=== PATIENT | female | born 1995 | race African-American/Black ===

== ENCOUNTER 2022-06-30 09:52 | Emergency (ER) | payer MEDICAID, SELFPAY ==
[2022-06-30 09:57] VITALS: BP 122/80; PULSE 110; RESP 19; TEMP 36.6; O2SAT 100; BMI 20.9
--- NOTE | 2022-06-30 10:27 | ED.GENADULT ---
HPI - General Adult General Chief complaint: General Medical Stated complaint: Seeking detox Time Seen by Provider: 06/30/22 10:27 Source: patient Mode of arrival: ambulatory Limitations: no limitations History of Present Illness HPI narrative: Patient is a 26 year old assigned female at with a history of crack cocaine abuse presenting to the emergency department today requesting detox. Patient states that she is using crack daily and would like help getting into treatment. Patient denies any dizziness, lightheadedness, abdominal pain, nausea, vomiting, fever, chills, blurry vision, double vision, loss of vision, chest pain, difficulty breathing, shortness of breath, back pain, night sweats, pain with urination, increased urinary frequency, increased urinary urgency, blood in her urine or stool, syncope or a near syncopal episode, recent trauma or falls, bowel incontinence, bladder incontinence, bowel retention, bladder retention, or any other complaints at this time. Severity: mild Relieving factors: none Exacerbating factors: none Associated symptoms: denies other symptoms Treatments prior to arrival: none Related Data Allergies Allergy/AdvReac Type Severity Reaction Status Date / Time No Known Allergies Allergy Verified 06/30/22 10:29 Review of Systems Constitutional: Constitutional: Reports no additional constitutional complaints, Denies chills, Denies fever(s) and Denies night sweats Eyes: Eyes: Reports no additional eye complaints, Denies blurry vision, Denies change in vision, Denies diplopia, Denies eye discharge, Denies loss of vision and Denies eye pain ENT: Denies dizziness Cardiovascular: Cardiovascular: Reports no additional cardiovascular complaints, Denies chest pain, Denies lightheadedness, Denies Loss of Consciousness and Denies dyspnea Respiratory: Respiratory: Reports no additional respiratory complaints and Denies dyspnea Gastrointestinal: Gastrointestinal: Reports no additional gastrointestinal complaints, Denies abdominal pain, Denies melena, Denies hematochezia, Denies change in bowel habits and Denies change in stool character Genitourinary: Genitourinary: Denies hematuria, Denies urinary frequency, Denies dysuria, Denies urinary incontinence, Denies urinary hesitancy and Denies urinary urgency Musculoskeletal: Musculoskeletal: Reports no additional musculoskeletal complaints, Denies numbness and Denies tingling Neurologic: Denies dizziness, Denies loss of vision, Denies numbness and Denies tingling Psychiatric: Psychiatric: Reports no additional psychiatric complaints Endocrine: Endocrine: Reports no additional endocrine complaints Hematologic/Lymphatic: Hematologic/Lymphatic: Reports no additional hematologic/lymphatic complaints Allergic/Immunologic: Allergic/Immunologic: Reports no additional allergic/immunologic complaints [facility] Past Medical History Attestation statement: The following information was validated with the patient. Source: old records reviewed and nursing notes reviewed Social History Social History Advance Directives: No Advance Directives Information Provided: No Physical Exam ED Vital Signs: Vital Signs - 24 hr 06/30/22 09:57 Temperature 98 F Pulse Rate 110 H Respiratory Rate 19 Blood Pressure 122/80 Pulse Oximetry 100 Oxygen Delivery Method Room Air BMI result Body Mass Index 20.9 Const General: cooperative, no acute distress, alert and awake Nutritional Appearance: well nourished Orientation/consciousness: patient oriented x3 Limitations: no limitations HENMT Head: Yes normal to inspection and Yes atraumatic Ears: hearing grossly normal bilaterally and external ears normal General nose exam: Normal external nose present, no nasal discharge noted and no epistaxis Face and sinus: Yes normal facial exam, No abrasion and No laceration Mouth: Normal oral and palatal mucosa present, no drooling and no muffled voice Eyes General: appearance normal, both eyes and all related structures Periorbital: periorbital findings normal Eyelids: Yes eyelids normal Conjunctivae: conjunctivae normal Pupils: Equal, round and reactive pupils present EOM: EOMs intact bilaterally Neck Neck: Yes normal visual inspection, Yes full ROM and Yes no lymphadenopathy Chest Chest palpation & inspection: normal inspection of the chest Resp Effort & Inspection: normal respiratory effort and able to speak in complete sentences Auscultation: clear to auscultation bilaterally Cardio Rate: regular rate Rhythm: regular rhythm GI Inspection: Yes normal to inspection Palpation (GI): Soft to palpation, not firm, nontender, no guarding and not rigid Neuro General: patient oriented x3 and moves all extremities Cranial nerves: Yes Equal, round and reactive pupils present Cognition (Neuro): normal cognition Motor exam (neuro): 5/5 motor strength present throughout Sensory Exam: Normal double simultaneous stimulation for sensation Coordination: [id number] test normal Extrem General: Yes normal to inspection, Yes full ROM and Yes capillary refill normal Psych Appearance: grossly normal Mental Status: mental status grossly normal Affect: normal affect Attitude: cooperative Thought process: Normal thought process present Thought content: Normal thought content present Insight: Good insight present (Psych) Medical Decision Making Medical Decision Making MDM Narrative: Patient is a 26 year old assigned female at with a history of crack cocaine abuse presenting to the emergency department today requesting detox. Patient's physical exam was unremarkable. I explained my physical exam findings to the patient. I answered all questions asked by the patient. CARE team met with the patient and secured her a detox bed in [place]. I stressed the importance of the patient taking her medication as prescribed. I stressed the importance of the patient following up with her primary care provider. I stressed the importance of the patient returning to the emergency department immediately if she were to develop any dizziness, shortness of breath, difficulty breathing, chest pain, blurry vision, loss of vision, nausea, vomiting, abdominal pain, fever, chills, back pain, or any other complaints. Patient verbalized agreement and understanding with this treatment plan and discharge. Differential Diagnosis Differential Diagnoses: The differential diagnosis associated with the presentation includes crack cocaine abuse, substance abuse Lab Data [facility] Lab Attestation statement: I reviewed the patient's lab results. Labs: Lab Results 06/30/22 Range/Units 12:22 Urine Opiates Screen Not Detected (Not Detect) Urine Fentanyl Screen Not Detected (Not Detect) Ur Barbiturates Screen Not Detected (Not Detect) Ur Phencyclidine Scrn Not Detected (Not Detect) Ur Amphetamines Screen Not Detected (Not Detect) U Benzodiazepines Scrn Not Detected (Not Detect) Urine Cocaine Screen POSITIVE H (Not Detect) U Marijuana (THC) Screen POSITIVE H (Not Detect) Discharge Plan Discharge Clinical Impression: Crack cocaine use Patient Disposition: Home, Self-Care Instructions: Cocaine Abuse (ED) Additional Instructions: Follow up with your primary care provider. Return to the emergency department immediately if your symptoms worsen or if you develop any dizziness, shortness of breath, difficulty breathing, chest pain, blurry vision, loss of vision, nausea, vomiting, abdominal pain, fever, chills, back pain, or any other complaints. Print Language: Welsh
--- NOTE | 2022-06-30 11:57 | MHC.RECOVRN ---
Met with pt in [facility] to discuss substance use and desire for treatment. Pt reports using crack cocaine, INH, x 4 days and is requesting ATS placement. Pt unable to quantify how much, states I don't buy it. Denies other substances. Pt had been living in [place] with her boyfriend but was kicked out on [address] and mother brought her back to [place]. Pt has been to [facility] and [facility] in the past, is willing to go anywhere except [facility]. Denies questions or concerns, t/w will send referrals.
[2022-06-30 12:39] LABS: Amphetamine Screen Urine Not Detected (Not Detect); Barbiturates, Urine Not Detected (Not Detect); Benzodiazepines Screen Urine Not Detected (Not Detect); Cannabinoid Screen Urine POSITIVE (Not Detect); Cocaine Screen Urine POSITIVE (Not Detect); Fentanyl, urine Not Detected (Not Detect); Opiate Screen Urine Not Detected (Not Detect); Phencyclidine Screen Urine Not Detected (Not Detect)
--- NOTE | 2022-06-30 13:19 | PC.NURSE ---
pt had intake with marianna chew via phone- CARE team aware, pt currently in room eating, DAT [facility]
--- NOTE | 2022-06-30 14:31 | MHC.RECOVRN ---
Pt dc to [facility] at [address] [place], [place]. Will be transported via [employer].
== END 2022-06-30 15:02 | disposition home or self-care (01) ==
PROVIDERS: Physician Assistant Medical; Emergency Provider Student in an Organized Health Care Education/Training Program
DX: F14.10 Cocaine abuse, uncomplicated (principal)
CPT/HCPCS: 80307; 99283

== ENCOUNTER 2022-10-18 18:19 | Emergency (ER) | payer MEDICAID, SELFPAY ==
--- NOTE | ~2022-10-18 | XR_ITS ---
EXAMINATION: XR FINGER, RIGHT CLINICAL INFORMATION: Thumb pain, redness COMPARISON: None available. TECHNIQUE: Three views of the right thumb. FINDINGS: The bones and soft tissues are normal. No fracture. Alignment is anatomic. Joint spaces are maintained. XR/XR finger RT min 2V IMPRESSION: Normal finger radiographs.
[2022-10-18 18:33] VITALS: BP 152/96; PULSE 103; RESP 20; TEMP 37.5; O2SAT 98; BMI 20.5
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
[2022-10-18 19:10] LABS: MANUAL DIFF FLAG NO
[2022-10-18 19:11] LABS: Basophils Percent Auto 0.4 % (0-2); Eosinophils Percent Auto 0.5 % (0-4); Hematocrit 36.4 % (37.0-47.0); Hemoglobin 11.8 g/dl (12.0-16.0); Imm Gran Abs Auto 0.01 X10*3/uL (0.00-0.03); Imm Gran Pct Auto 0.1 % (0.0-0.4); Lymphocytes Absolute Auto 2.1 X10*3/uL (1.2-4.9); Lymphocytes Percent Auto 28.2 % (20-40); Mean Corpuscular HGB Conc 32.4 g/dl (31.0-35.0); Mean Corpuscular Hemoglobin 30.7 pg (27.0-33.0); Mean Corpuscular Volume 94.8 fL (80.0-98.0); Mean Platelet Volume 9.8 fL (9.4-12.3); Monocytes Absolute Auto 0.8 X10*3/uL (0.1-1.2); Monocytes Percent Auto 10.1 % (2-11); Neutrophils Absolute Auto 4.6 x10*3/uL (2.0-8.3); Neutrophils Percent Auto 60.7 % (45-73); Platelet Count 352 X10*3/uL (160-400); Red Blood Count 3.84 X10*6/uL (4.20-5.50); Red Cell Distribution Width 12.5 % (11.0-16.0); White Blood Count 7.5 X10*3/uL (4.8-10.8)
[2022-10-18 19:12] LABS: Appearance Urine Clear; Color Urine Yellow; Glucose Urine UA Negative (Negative); Leukocyte Esterase Urine Trace (Negative); Nitrite Urine Negative (Negative); UMIC TRIGGER UACC YES; UPreg QC Valid YES; Urine Blood Negative (Negative); Urine Ketones Negative (Negative); Urine Pregnancy NEGATIVE (NEGATIVE); Urine Protein Negative (Neg-Trace)
[2022-10-18 19:15] LABS: Bacteria Urine None Seen (None Seen); Hyaline Casts Urine 0-2 /LPF (0-2); RBC Urine 0-2 /HPF (0-2); WBC Urine 0-5 /HPF (0-5)
[2022-10-18 19:20] LABS: Amphetamine Screen Urine Not Detected (Not Detect); Barbiturates, Urine Not Detected (Not Detect); Benzodiazepines Screen Urine POSITIVE (Not Detect); Cannabinoid Screen Urine Not Detected (Not Detect); Cocaine Screen Urine POSITIVE (Not Detect); Fentanyl, urine POSITIVE (Not Detect); Opiate Screen Urine Not Detected (Not Detect); Phencyclidine Screen Urine Not Detected (Not Detect)
[2022-10-18 19:33] LABS: Alanine Aminotransferase 33 U/L (0-31); Albumin Level 4.1 g/dL (3.5-5.0); Alkaline Phosphatase 62 U/L (39-117); Anion Gap 12 (12-20); Aspartate Amino Transferase 25 U/L (5-31); Bilirubin Direct 0.1 mg/dL (0.0-0.5); Bilirubin Total 0.3 mg/dL (0.0-1.0); Blood Urea Nitrogen 14 mg/dL (9-16); Calcium 9.1 mg/dL (8.4-10.2); Carbon Dioxide 23 mmol/L (22-29); Chloride 110 mmol/L (96-108); Creatinine Clr Calc Pharmacy 118.4; Estimated Glomerular Filt Rate > 60; Ethanol < 10 mg/dL; Glucose Random 89 mg/dL (60-115); Lipase 31 U/L (8-78); Magnesium 1.9 mg/dL (1.6-2.6); Potassium 3.7 mmol/L (3.3-5.1); Sodium 141 mmol/L (135-145)
[2022-10-18] MEDS: Amoxicillin/Potassium Clav 875 MG TABLET PO (20:12)
[2022-10-18 20:43] LABS: COVID-19 Test Negative (Negative); IDNOW Serial# 6674DD1D
--- NOTE | 2022-10-18 22:31 | PC.NURSE ---
Spoke with patients m other on the phone regarding update on patients care status, said she will call back again in the morning for further update
--- NOTE | 2022-10-18 22:43 | PC.NURSE ---
assumed care of pt per charge nurse pt seeking detox no apparent distress resting quietly
--- NOTE | 2022-10-19 01:46 | PC.NURSE ---
pt sleeping respirations even and unlabored no apparent distress
--- NOTE | 2022-10-19 03:12 | PC.NURSE ---
pt sleeping respirations even and unlabored no apparent distress
--- NOTE | 2022-10-19 05:04 | PC.NURSE ---
pt sleeping respirations even and unlabored no apparent distress
--- NOTE | 2022-10-19 07:26 | PC.NURSE ---
pt sleeping respirations even and unlabored no apparent distress
[2022-10-19 07:47] VITALS: BP 128/82; PULSE 68; RESP 20; TEMP 36.8; O2SAT 98
--- NOTE | 2022-10-19 08:35 | MHC.RECOVRN ---
Met with pt in ED [facility] to discuss ATS. Pt reports she is willing to go anywhere for treatment except [facility] because you have to wear johnnies and it's cold in there. Pt aware [facility] may be the only option. T/w will conduct bedsearch.
--- NOTE | 2022-10-19 09:13 | MHC.RECOVRN ---
Referral has been sent to the following facilities: [facility] (awaiting call back with bed availability) [facility] (no beds) [facility] (wait list) [facility] (awaiting call back with bed availability) [facility] (awaiting call back with bed availability) [facility] (awaiting call back with bed availability)
--- NOTE | 2022-10-19 10:22 | MHC.RECOVRN ---
Pt agreeable to [facility] referral. Referral has been sent.
--- NOTE | 2022-10-19 11:29 | PC.NURSE ---
Pt has been sleeping, woke up to eat breakfast. Respirations even and unlabored.
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
[2022-10-19] MEDS: Amoxicillin/Potassium Clav 875 MG TABLET PO (12:12)
[2022-10-19 12:18] VITALS: BP 132/89; PULSE 81; RESP 16; O2SAT 98
--- NOTE | 2022-10-19 13:15 | MHC.RECOVRN ---
Spoke with Debbi at [facility], pt accepted pending phone screen.
--- NOTE | 2022-10-19 13:30 | MHC.RECOVRN ---
Pt accepted to [facility] for 8PM admission.
--- NOTE | 2022-10-19 17:19 | PC.NURSE ---
Pt provided mutliple sandwiches, pudding, and crackers. Continues to sleep on and off on the stretcher. Aware of plan for bed at detox for 8pm
== END 2022-10-19 19:27 | disposition left against medical advice (07) ==
PROVIDERS: Physician Assistant; Physician Assistant Medical; Emergency Provider Internal Medicine
DX: F10.20 Alcohol dependence, uncomplicated (principal); Y90.0 Blood alcohol level of less than 20 mg/100 ml; F19.10 Other psychoactive substance abuse, uncomplicated; T23.211D Burn of second degree of right thumb (nail), subsequent encounter; X08.8XXD Exposure to other specified smoke, fire and flames, subsequent encounter; Z20.822 Contact with and (suspected) exposure to COVID-19
CPT/HCPCS: 36415; 73140; 80048; 80076; 80307; 81001; 81025; 82077; 83690; 83735; 85025; 87635; 99285

== ENCOUNTER 2022-11-01 09:46 | Emergency (ER) | payer MEDICAID, SELFPAY ==
[2022-11-01 09:50] VITALS: BP 165/111; PULSE 105; RESP 18; TEMP 36.6; O2SAT 98; BMI 19.2
--- NOTE | 2022-11-01 10:25 | ED_ITS ---
HPI - Alcohol General Chief Complaint: ETOH/Substance Use Stated Complaint: detox rehab Time Seen by Provider: 11/01/22 10:12 Source: patient and family Mode of arrival: ambulatory Limitations: no limitations History of Present Illness HPI narrative: Patient is a 27 year old female with a PMH of substance abuse, anxiey, depression, bipolar, and asthma here seeking detox treatment. She currently uses about 3-5g of crack a day, fentanyl, and also endorses heavy alcohol use. She stats she typically drinks about a pint of [place], about 11 nips, and UV blue.She last used about an hour ago. At that time she used a large amount of crack. She drank alcohol at 12am today. She states about an hour ago she was having pain with breathing and shallow breaths which have since resolved. She also endorses spinal back pain, chills, and sweats She denies chest pain, current difficulty breathing, headache, abdominal pain, difficulty with urination/bowel movements, and other muscle aches. She also denies SI. She also was concerned about a large blister on her toe. MD complaint: desires rehab and medical clearance for detox facility Last drink: Just prior to admission Chronic alcohol use: Yes Previous visits for alcohol intoxication: Yes Recent trauma: No Related Data Allergies Allergy/AdvReac Type Severity Reaction Status Date / Time No Known Allergies Allergy Verified 06/30/22 10:29 Review of Systems Review of Systems: Constitutional : No Fever, Chills, Sweats, No Fatigue Cardiovascular : No Chest Pain, No SOB, No current dyspnea, + although endorses shallow breathing earlier today Respiratory : No Cough, No Sputum, No Wheezing, No Smoke Exposure, No Dyspnea Gastrointestinal : No Diarrhea, No Constipation, No abdominal Pain, Genitourinary : No Dysuria, No Urinary Frequency, No Urinary Incontinence, No Urgency, No Urinary Flow Changes, No Hesitancy Musculoskeletal : Pain in the spine, right sided back painNo joint pain, No Myalgias, No Joint Swelling Skin : + Fluid-filled blister on her toe Neuro : No Headache Psych : No SI/HI/AH/VH, uses crack, Fentanyl, and heavy alcohol, has undergone detox before Endocrine : increased sweating Yes all other systems are reviewed and are negative PMFSH Past Medical History Attestation statement: The following information was validated with the patient. Source: old records reviewed, obtained from family and nursing notes reviewed Social History Social History Alcohol intake: current Alcohol intake frequency: 3 or more drinks per day Alcohol type: hard liquor Substance Use Type: Crack/Cocaine Advance Directives: No Advance Directives Information Provided: Yes Physical Exam ED Vital Signs: Vital Signs - 24 hr 11/01/22 09:50 Temperature 98 F Pulse Rate 105 H Respiratory Rate 18 Blood Pressure 165/111 H Pulse Oximetry 98 Oxygen Delivery Method Room Air BMI result Body Mass Index 19.2 vital signs have been reviewed as normal and appeared to be correct. Blood pressure 165/111. Heart rate 105 Respiration rate normal. Temperature normal. Oxygen saturation normal. Appearance: Alert. Oriented X3. No acute distress. Head: Normal external exam. Normocephalic. Atraumatic. No Fischer signs noted. No raccoon eyes noted Eyes: PERRLA. EOMI. Conjunctiva and sclera normal. Eyelids normal. ENT: EAC normal. TM's Normal. No septal hematoma noted. No hemotympanum noted. Pharynx normal. Uvula midline. Moist mucous membranes. No lesions/ulcerations or masses noted on the tongue. Normal voice. No trismus noted. No drooling noted. No muffled voice noted. Neck: Normal inspection. Neck supple. FROM. No adenopathy. Thyroid Normal. No tracheal deviation noted. No crepitus is noted. No meningeal signs. No neck mass noted. No signs of trauma noted. CVS: Normal heart rate and rhythm. Heart sound normal. Pulses normal throughout. No murmurs/rales/gallops. Respiratory: No respiratory distress. Painless inspiration. Breath sounds normal. No wheezes/rales/rhonchi noted. Chest nontender. No crepitus is noted. No signs of trauma noted. No accessory muscle usage noted or decreased air movement noted. No signs of trauma. Abdomen: Soft and nontender. Bowel sounds normal in all 4 quadrants. No distention noted. No organomegaly noted. No visible injury noted. Back: No CVA tenderness. Full range of motion noted. Nontender. No signs of trauma. Patient neuro intact bilaterally and distally on all 4 extremities. Patient's reflexes intact bilaterally and distally on all 4 extremities. No rashes/lesion/induration/fluctuance or signs of infection noted. Skin: Skin warm and dry. Normal skin color. Normal skin turgor. No rashes/lesions/lacerations noted. To her foot 4th digit she has a small fluid- filled blister with mild surrounding erythema. No streaking or induration or foreign bodies noted. Extremities: No lower extremity edema. No calf tenderness is noted. Extremities exhibit normal range of motion and nontender. Neuro: Oriented X 3. No motor deficit. No sensory deficit. Reflexes normal. Normal steady gait. No focal neuro deficits noted. CN's II-XII intact b ilaterally? Vascular: + radial pulses/+ 2 distal pedal pulses/+2 dorsalis pedis b/l. Normal cap refill. No cyanosis noted to upper extremity nails and lower extremity toes nails. Course Course Course Narrative: Patient was here for medical clearance for rehab reports that she uses crack cocaine and alcohol. Was just at rehab although she signed herself out she reports ?I was not ready. She reports she was having some shallow breathing and some back pain along with chills and she is concerned for blister to her foot/toe has occurred over the past few days. She just drank alcohol prior to arrival and did crack cocaine. She denies any other symptoms related to this. She denies any trauma. She denies any measured fevers, chest pain at this time, shortness of breath at this time, cough, nausea/vomiting, abdominal pain, dysuria hematuria or any missed periods. We explained to her that we will have to medically clear her although patient was refusing all labs and imaging and she ended up eloping reports she does not want to be here she just wants to go to rehab we gave her resources that she can call herself for rehab at this time. Medical Decision Making Independent Historian Clinical information obtained from an independent historian. History obtained from or confirmed by: Spouse External Record Review All prior labs/imaging/prior visits that are accessible in our system reviewed by myself Discharge Plan Discharge Clinical Impression: Polysubstance abuse Patient Disposition: Elopement
== END 2022-11-01 11:49 | disposition left against medical advice (07) ==
PROVIDERS: Emergency Provider Emergency Medicine
DX: F19.10 Other psychoactive substance abuse, uncomplicated (principal); S90.426A Blister (nonthermal), unspecified lesser toe(s), initial encounter; X58.XXXA Exposure to other specified factors, initial encounter; Y93.9 Activity, unspecified; Y92.9 Unspecified place or not applicable; Y99.9 Unspecified external cause status
CPT/HCPCS: 99281

== ENCOUNTER 2022-12-19 23:40 | Emergency (ER) | payer OTHER, SELFPAY ==
[2022-12-19 23:44] VITALS: BP 111/61; PULSE 98; RESP 18; TEMP 36.6; O2SAT 99; BMI 19.5
[2022-12-20 01:04] LABS: Basophils Percent Auto 0.5 % (0-2); Eosinophils Absolute Auto 0.1 X10*3/uL (0.0-0.4); Hematocrit 33.5 % (37.0-47.0); Hemoglobin 10.7 g/dl (12.0-16.0); Imm Gran Abs Auto 0.01 X10*3/uL (0.00-0.03); Imm Gran Pct Auto 0.2 % (0.0-0.4); Lymphocytes Absolute Auto 2.7 X10*3/uL (1.2-4.9); Lymphocytes Percent Auto 42.1 % (20-40); MANUAL DIFF FLAG NO; Mean Corpuscular HGB Conc 31.9 g/dl (31.0-35.0); Mean Corpuscular Hemoglobin 30.5 pg (27.0-33.0); Mean Corpuscular Volume 95.4 fL (80.0-98.0); Mean Platelet Volume 10.2 fL (9.4-12.3); Monocytes Absolute Auto 0.7 X10*3/uL (0.1-1.2); Neutrophils Absolute Auto 2.8 x10*3/uL (2.0-8.3); Neutrophils Percent Auto 44.2 % (45-73); Platelet Count 248 X10*3/uL (160-400); Red Blood Count 3.51 X10*6/uL (4.20-5.50); Red Cell Distribution Width 12.9 % (11.0-16.0); White Blood Count 6.4 X10*3/uL (4.8-10.8)
--- NOTE | 2022-12-20 01:19 | ED.GENADULT ---
HPI - General Adult General Chief complaint: Abdominal Pain Stated complaint: pelvic pain, unable to pee Time Seen by Provider: 12/20/22 01:10 Source: patient Mode of arrival: ambulatory Limitations: no limitations History of Present Illness HPI narrative: Patient comes to the emergency room complaining of dysuria and suprapubic pressure, also requesting detox for alcohol and crack cocaine. Denies suicidal homicidal ideation. Patient is here chills, no flank pain Related Data Allergies Allergy/AdvReac Type Severity Reaction Status Date / Time No Known Allergies Allergy Verified 06/30/22 10:29 Review of Systems Review of Systems: Constitutional : No Weight loss, No Fever, No Chills, No Night Sweats, No Fatigue, No Malaise ENT/Mouth : No Hearing loss, No Ear Pain, No Nasal Congestion, No Sinus Pain, No Hoarseness, No sore throat, No Rhinorrhea, No Swallowing Difficulty Eyes: No Eye Pain, No Swelling, No Redness, No Foreign Body, No Discharge, No Vision Changes Cardiovascular : No Chest Pain, No SOB, No Dyspnea on Exertion, No Orthopnea, No Edema, No Palpitations Respiratory : No Cough, No Sputum, No Wheezing, No Smoke Exposure, No Dyspnea Gastrointestinal : No Nausea, No Vomiting, No Diarrhea, No Constipation, No abdominal Pain, complaining of suprapubic discomfort with urination, No Hematochezia, No Melena Genitourinary : no irregular bleeding, complaining of Dysuria, No Urinary Frequency, No Hematuria, No Urinary Incontinence, No Urgency, No Flank Pain, No Urinary Flow Changes, No Hesitancy Musculoskeletal : No joint pain, No Myalgias, No Joint Swelling Skin : No Skin Lesions, No rash Neuro : No Weakness, No Numbness, No Paresthesias, No Loss of Consciousness, No Dizziness, No Headache Psych : No Anxiety/Panic, No Depression, No SI/HI/AH/VH, admits to polysubstance abuse, requesting detox Heme/Lymph: No Bruising, No Bleeding,No Lymphadenopathy Endocrine : No Polyuria, No Polydipsia, No Temperature Intolerance PMF Past Medical History Medical History (Updated 12/20/22 @ 01:27 by Leora Johnson MD) Alcohol dependence Bipolar disorder Crack cocaine use Crack cocaine use Polysubstance abuse Social History Social History Alcohol intake: current Alcohol intake frequency: 3 or more drinks per day Alcohol type: hard liquor Substance Use Type: Crack/Cocaine Advance Directives: No Advance Directives Information Provided: Yes Physical Exam ED Vital Signs: Vital Signs - 24 hr 12/19/22 23:44 12/20/22 02:28 12/20/22 04:25 Temperature 98 F 98.4 F 98.4 F Pulse Rate 98 92 79 Respiratory Rate 18 18 14 Blood Pressure 111/61 112/61 103/58 L Pulse Oximetry 99 98 97 Oxygen Delivery Method Room Air Room Air Room Air BMI result Body Mass Index 19.5 Const Other: Appearance: Alert. Oriented X3. No acute distress. Well-appearing Eyes: Pupils equal, round and reactive to light. ENT: Pharynx normal. Neck: Normal inspection. Neck supple. No lymph nodes noted. No crepitus CVS: Normal heart rate and rhythm. Pulses normal. Normal S1 and S2 Respiratory: No respiratory distress. Breath sounds normal. No Wheezing. No rales Abdomen: Soft and nontender. No rigidity. No distention. Skin: Skin warm and dry. Normal skin color. Normal skin turgor. Extremities: No lower extremity edema. No Lacerations. No Rash Neuro: Oriented X 3. No motor deficit. No sensory deficit. Moving all extremities. No slurred speech. CN 2 through 12 grossly intact Psych: calm, cooperative, normal affect Course Course Course Narrative: -patient's labs pending -getting consult pending -physician observation status at 01:25 Medical Decision Making Medical Decision Making [facility] Narrative: -patient does not have a urine infection. -patient's white blood cell count is 6.4, unlikely to have any infection -my interpretation of UA: Negative for . -the care team evaluated the patient, patient was giving information for detox facilities, patient can be discharged. Patient denies SI or HI Differential Diagnosis Differential Diagnoses: The differential diagnosis associated with the presentation includes (Alcohol abuse, polysubstance abuse, UTI) Lab Data [facility] Lab Attestation statement: I reviewed the patient's lab results. 12/20/22 00:59 12/20/22 00:59 Labs: Lab Results 12/20/22 12/20/22 12/20/22 Range/Units 00:59 00:59 01:27 WBC 6.4 (4.8-10.8) X10*3/uL RBC 3.51 L (4.20-5.50) X10*6/uL Hgb 10.7 L (12.0-16.0) g/dl Hct 33.5 L (37.0-47.0) % MCV 95.4 (80.0-98.0) fL MCH 30.5 (27.0-33.0) pg MCHC 31.9 (31.0-35.0) g/dl RDW 12.9 (11.0-16.0) % Plt Count 248 D (160-400) X10*3/uL MPV 10.2 (9.4-12.3) fL Immature Gran % (Auto) 0.2 (0.0-0.4) % Neut % (Auto) 44.2 L (45-73) % Lymph % (Auto) 42.1 H (20-40) % [place] % (Auto) 11.0 (2-11) % Eos % (Auto) 2.0 (0-4) % Baso % (Auto) 0.5 (0-2) % Lymph # (Auto) 2.7 (1.2-4.9) X10*3/uL [place] # (Auto) 0.7 (0.1-1.2) X10*3/uL Eos # (Auto) 0.1 (0.0-0.4) X10*3/uL Baso # (Auto) 0.0 (0.0-0.2) X10*3/uL Abs Immat Gran (auto) 0.01 (0.00-0.03) X10*3/uL Absolute Neuts (auto) 2.8 (2.0-8.3) x10*3/uL Absolute Nucleated RBC 0.000 (0.0-0.012) X10*3/uL Nucleated RBC % (auto) 0.0 (0.0-0.2) /100WBC Sodium 140 (135-145) mmol/L Potassium 3.5 (3.3-5.1) mmol/L Chloride 117 H (96-108) mmol/L Carbon Dioxide 14 L (22-29) mmol/L Anion Gap 13 (12-20) BUN 15 (9-16) mg/dL Creatinine 0.84 (0.5-1.4) mg/dL Estim Creat Clear Calc 95.0 Estimated GFR > 60 Random Glucose 126 H (60-115) mg/dL Calcium 9.0 (8.4-10.2) mg/dL Total Bilirubin 0.2 (0.0-1.0) mg/dL Direct Bilirubin < 0.2 (0.0-0.5) mg/dL AST 30 (5-31) U/L ALT 25 (0-31) U/L Alkaline Phosphatase 58 (39-117) U/L Total Protein 6.9 (6.5-8.0) g/dL Albumin 3.7 (3.5-5.0) g/dL Lipase 20 (8-78) U/L Urine Color Yellow Urine Appearance Cloudy Urine pH 5.5 (5.0-9.0) Ur Specific [place] >= 1.030 H (1.005-1.025) Urine Protein Trace (Neg-Trace) mg/dL Urine Glucose (UA) Negative (Negative) mg/dL Urine Ketones Trace (Negative) mg/dL Urine Blood Negative (Negative) Urine Nitrite Negative (Negative) Ur Leukocyte Esterase Negative (Negative) Urine RBC 0-2 (0-2) /HPF Urine WBC 0-5 (0-5) /HPF Ur Squamous Epith Cells 6-10 (0-2) /HPF Calcium Oxalate Crystal Present Urine Bacteria 2+ (None Seen) Hyaline Casts 0-2 (0-2) /LPF Urine Test (NEGATIVE) Urine Opiates Screen (Not Detect) Urine Fentanyl Screen (Not Detect) Ur Barbiturates Screen (Not Detect) Ur Phencyclidine Scrn (Not Detect) Ur Amphetamines Screen (Not Detect) U Benzodiazepines Scrn (Not Detect) Urine Cocaine Screen (Not Detect) U Marijuana (THC) Screen (Not Detect) Ethyl Alcohol < 10 mg/dL 12/20/22 12/20/22 Range/Units 01:27 01:30 WBC (4.8-10.8) X10*3/uL RBC (4.20-5.50) X10*6/uL Hgb (12.0-16.0) g/dl Hct (37.0-47.0) % MCV (80.0-98.0) fL MCH (27.0-33.0) pg MCHC (31.0-35.0) g/dl RDW (11.0-16.0) % Plt Count (160-400) X10*3/uL MPV (9.4-12.3) fL Immature Gran % (Auto) (0.0-0.4) % Neut % (Auto) (45-73) % Lymph % (Auto) (20-40) % [place] % (Auto) (2-11) % Eos % (Auto) (0-4) % Baso % (Auto) (0-2) % Lymph # (Auto) (1.2-4.9) X10*3/uL [place] # (Auto) (0.1-1.2) X10*3/uL Eos # (Auto) (0.0-0.4) X10*3/uL Baso # (Auto) (0.0-0.2) X10*3/uL Abs Immat Gran (auto) (0.00-0.03) X10*3/uL Absolute Neuts (auto) (2.0-8.3) x10*3/uL Absolute Nucleated RBC (0.0-0.012) X10*3/uL Nucleated RBC % (auto) (0.0-0.2) /100WBC Sodium (135-145) mmol/L Potassium (3.3-5.1) mmol/L Chloride (96-108) mmol/L Carbon Dioxide (22-29) mmol/L Anion Gap (12-20) BUN (9-16) mg/dL Creatinine (0.5-1.4) mg/dL Estim Creat Clear Calc Estimated GFR Random Glucose (60-115) mg/dL Calcium (8.4-10.2) mg/dL Total Bilirubin (0.0-1.0) mg/dL Direct Bilirubin (0.0-0.5) mg/dL AST (5-31) U/L ALT (0-31) U/L Alkaline Phosphatase (39-117) U/L Total Protein (6.5-8.0) g/dL Albumin (3.5-5.0) g/dL Lipase (8-78) U/L Urine Color Urine Appearance Urine pH (5.0-9.0) Ur Specific [place] (1.005-1.025) Urine Protein (Neg-Trace) mg/dL Urine Glucose (UA) (Negative) mg/dL Urine Ketones (Negative) mg/dL Urine Blood (Negative) Urine Nitrite (Negative) Ur Leukocyte Esterase (Negative) Urine RBC (0-2) /HPF Urine WBC (0-5) /HPF Ur Squamous Epith Cells (0-2) /HPF Calcium Oxalate Crystal Urine Bacteria (None Seen) Hyaline Casts (0-2) /LPF Urine Test NEGATIVE (NEGATIVE) Urine Opiates Screen POSITIVE H (Not Detect) Urine Fentanyl Screen Not Detected (Not Detect) Ur Barbiturates Screen Not Detected (Not Detect) Ur Phencyclidine Scrn Not Detected (Not Detect) Ur Amphetamines Screen Not Detected (Not Detect) U Benzodiazepines Scrn POSITIVE H (Not Detect) Urine Cocaine Screen POSITIVE H (Not Detect) U Marijuana (THC) Screen POSITIVE H (Not Detect) Ethyl Alcohol mg/dL Discharge Plan Discharge Clinical Impression: Dysuria, Polysubstance abuse Patient Disposition: Home, Self-Care Instructions: Polysubstance Abuse (ED) Additional Instructions: Please follow-up with your primary care physician tomorrow. If you have any worsening or new symptoms, please return to the emergency room or call 911
[2022-12-20 01:23] LABS: Alanine Aminotransferase 25 U/L (0-31); Albumin Level 3.7 g/dL (3.5-5.0); Alkaline Phosphatase 58 U/L (39-117); Anion Gap 13 (12-20); Aspartate Amino Transferase 30 U/L (5-31); Bilirubin Direct < 0.2 mg/dL (0.0-0.5); Bilirubin Total 0.2 mg/dL (0.0-1.0); Blood Urea Nitrogen 15 mg/dL (9-16); Carbon Dioxide 14 mmol/L (22-29); Chloride 117 mmol/L (96-108); Estimated Glomerular Filt Rate > 60; Ethanol < 10 mg/dL; Glucose Random 126 mg/dL (60-115); Lipase 20 U/L (8-78); Potassium 3.5 mmol/L (3.3-5.1); Sodium 140 mmol/L (135-145); Total Protein 6.9 g/dL (6.5-8.0)
--- NOTE | 2022-12-20 01:50 | MHC.CARE ---
Per Pts request for information about Detox resources, T/W met briefly with her and gave her the resource guide as well as contact information regarding contacting recovery coaches.
[2022-12-20 02:28] VITALS: BP 112/61; PULSE 92; RESP 18; TEMP 36.9; O2SAT 98
[2022-12-20 04:25] VITALS: BP 103/58; PULSE 79; RESP 14; TEMP 36.9; O2SAT 97
--- NOTE | 2022-12-20 06:32 | MHC.EDTECH ---
Pt refused vital signs at this time RN aware.
== END 2022-12-20 07:04 | disposition home or self-care (01) ==
PROVIDERS: Emergency Provider Emergency Medicine
DX: R30.0 Dysuria (principal); F19.20 Other psychoactive substance dependence, uncomplicated
CPT/HCPCS: 36415; 80048; 80076; 80307; 81001; 81025; 83690; 85025; 93005; 99284; 99285

== ENCOUNTER 2023-02-01 17:15 | Emergency (ER) | payer MEDICAID, SELFPAY ==
[2023-02-01 17:48] VITALS: BP 107/59; PULSE 77; RESP 18; TEMP 37.1; O2SAT 96; BMI 20.5
[2023-02-01 18:15] LABS: MANUAL DIFF FLAG NO
[2023-02-01 18:19] LABS: Basophils Percent Auto 0.5 % (0-2); Eosinophils Percent Auto 0.5 % (0-4); Hematocrit 33.5 % (37.0-47.0); Hemoglobin 11.3 g/dl (12.0-16.0); Imm Gran Abs Auto 0.01 X10*3/uL (0.00-0.03); Imm Gran Pct Auto 0.2 % (0.0-0.4); Lymphocytes Percent Auto 33.6 % (20-40); Mean Corpuscular HGB Conc 33.7 g/dl (31.0-35.0); Mean Corpuscular Hemoglobin 30.8 pg (27.0-33.0); Mean Corpuscular Volume 91.3 fL (80.0-98.0); Mean Platelet Volume 10.6 fL (9.4-12.3); Monocytes Absolute Auto 0.8 X10*3/uL (0.1-1.2); Monocytes Percent Auto 13.4 % (2-11); Neutrophils Absolute Auto 3.1 x10*3/uL (2.0-8.3); Neutrophils Percent Auto 51.8 % (45-73); Platelet Count 262 X10*3/uL (160-400); Red Blood Count 3.67 X10*6/uL (4.20-5.50); Red Cell Distribution Width 12.9 % (11.0-16.0)
[2023-02-01 18:21] LABS: Appearance Urine Clear; Color Urine Yellow; Glucose Urine UA Negative (Negative); Leukocyte Esterase Urine Negative (Negative); Nitrite Urine Negative (Negative); Specific Gravity - Urine 1.025 (1.005-1.025); UMIC TRIGGER UACC YES; Urine Blood Negative (Negative); Urine Ketones Trace mg/dL (Negative); Urine Protein 30 (1+) mg/dL (Neg-Trace)
[2023-02-01 18:22] LABS: UPreg QC Valid YES; Urine Pregnancy NEGATIVE (NEGATIVE)
[2023-02-01 18:26] LABS: Bacteria Urine None Seen (None Seen); Hyaline Casts Urine 0-2 /LPF (0-2); RBC Urine 0-2 /HPF (0-2); Squamous Epithelial Cell Urine 0-2 /HPF (0-2); WBC Urine 0-5 /HPF (0-5)
[2023-02-01 18:31] LABS: COVID-19 Test Negative (Negative); IDNOW Serial# 08D9AD1C
[2023-02-01 18:33] LABS: Alanine Aminotransferase 19 U/L (0-31); Albumin Level 4.4 g/dL (3.5-5.0); Alkaline Phosphatase 73 U/L (39-117); Anion Gap 14 (12-20); Aspartate Amino Transferase 21 U/L (5-31); Bilirubin Total 0.5 mg/dL (0.0-1.0); Blood Urea Nitrogen 14 mg/dL (9-16); Calcium 9.2 mg/dL (8.4-10.2); Carbon Dioxide 22 mmol/L (22-29); Chloride 110 mmol/L (96-108); Creatinine Clr Calc Pharmacy 103.7; Estimated Glomerular Filt Rate > 60; Glucose Random 110 mg/dL (60-115); Potassium 3.7 mmol/L (3.3-5.1); Sodium 142 mmol/L (135-145); Total Protein 7.3 g/dL (6.5-8.0)
[2023-02-01 20:00] VITALS: BP 106/61; PULSE 74; RESP 16; TEMP 36.8; O2SAT 99
--- NOTE | 2023-02-01 21:59 | ED_ITS ---
HPI - General Adult General Chief complaint: ETOH/Substance Use Stated complaint: detox/body pain Time Seen by Provider: 02/01/23 21:56 Source: patient Mode of arrival: ambulatory Limitations: no limitations History of Present Illness HPI narrative: Patient history of bipolar disorder not taking any medication not following with any therapist or psychiatrist for few years been to detox at least 8 times in last 12 months last admission in detox was 1 1/2 months ago when she stayed sober only for 1 week patient drinks about 12 nebs a day and take cocaine also complaining of vaginal bleeding and she is on her. menses no vaginal discharge Worried about UTI/STI Related Data Allergies Allergy/AdvReac Type Severity Reaction Status Date / Time No Known Allergies Allergy Verified 06/30/22 10:29 Review of Systems Review of Systems: Yes all other systems are reviewed and are negative [facility] Past Medical History Medical History Alcohol dependence Bipolar disorder Crack cocaine use Crack cocaine use Polysubstance abuse Social History Social History Alcohol intake: current Alcohol intake frequency: 3 or more drinks per day Alcohol type: hard liquor Substance Use Type: Crack/Cocaine and Heroin Advance Directives: No Advance Directives Information Provided: Yes Physical Exam ED Vital Signs: Vital Signs - 24 hr 02/01/23 17:48 02/01/23 20:00 Temperature 98.7 F 98.2 F Pulse Rate 77 74 Respiratory Rate 18 16 Blood Pressure 107/59 L 106/61 Pulse Oximetry 96 99 Oxygen Delivery Method Room Air Room Air BMI result Body Mass Index 20.5 Appearance: Alert. Oriented X3. No acute distress. Eyes: PERRLA, No Nystagmus ENT: Pharynx normal. Oral Mucosa moist Neck: Normal inspection. Neck supple. CVS: Normal heart rate and rhythm. Pulses normal. Respiratory: No respiratory distress. Equal air entry bilateral, no wheezing/rales/rhonchi Abdomen: Soft and nontender. Bowel sounds are present, no mass palpable, no CVA tenderness Skin: Skin warm and dry. Normal skin color. Normal skin turgor. Extremities: No lower extremity edema. No calf tenderness Neuro: Oriented X 3. No motor deficit. Medical Decision Making Medical Decision Making MDM Narrative: Patient with frequent ED visits for detox been to detox at least 8 times in last 12 months is still using drugs and alcohol advised patient to follow-up as outpatient for detox placement Lab Data MDM Lab Attestation statement: I reviewed the patient's lab results. 02/01/23 18:09 02/01/23 18:09 Labs: Lab Results 02/01/23 02/01/23 02/01/23 Range/Units 18:09 18:09 18:09 WBC 6.0 (4.8-10.8) X10*3/uL RBC 3.67 L (4.20-5.50) X10*6/uL Hgb 11.3 L (12.0-16.0) g/dl Hct 33.5 L (37.0-47.0) % MCV 91.3 (80.0-98.0) fL MCH 30.8 (27.0-33.0) pg MCHC 33.7 (31.0-35.0) g/dl RDW 12.9 (11.0-16.0) % Plt Count 262 (160-400) X10*3/uL MPV 10.6 (9.4-12.3) fL Immature Gran % (Auto) 0.2 (0.0-0.4) % Neut % (Auto) 51.8 (45-73) % Lymph % (Auto) 33.6 (20-40) % [place] % (Auto) 13.4 H (2-11) % Eos % (Auto) 0.5 (0-4) % Baso % (Auto) 0.5 (0-2) % Lymph # (Auto) 2.0 (1.2-4.9) X10*3/uL [place] # (Auto) 0.8 (0.1-1.2) X10*3/uL Eos # (Auto) 0.0 (0.0-0.4) X10*3/uL Baso # (Auto) 0.0 (0.0-0.2) X10*3/uL Abs Immat Gran (auto) 0.01 (0.00-0.03) X10*3/uL Absolute Neuts (auto) 3.1 (2.0-8.3) x10*3/uL Absolute Nucleated RBC 0.000 (0.0-0.012) X10*3/uL Nucleated RBC % (auto) 0.0 (0.0-0.2) /100WBC Sodium 142 (135-145) mmol/L Potassium 3.7 (3.3-5.1) mmol/L Chloride 110 H (96-108) mmol/L Carbon Dioxide 22 (22-29) mmol/L Anion Gap 14 (12-20) BUN 14 (9-16) mg/dL Creatinine 0.81 (0.5-1.4) mg/dL Estim Creat Clear Calc 103.7 Estimated GFR > 60 Random Glucose 110 (60-115) mg/dL Calcium 9.2 (8.4-10.2) mg/dL Total Bilirubin 0.5 (0.0-1.0) mg/dL AST 21 (5-31) U/L ALT 19 (0-31) U/L Alkaline Phosphatase 73 (39-117) U/L Total Protein 7.3 (6.5-8.0) g/dL Albumin 4.4 (3.5-5.0) g/dL Urine Color Urine Appearance Urine pH (5.0-9.0) Ur Specific [place] (1.005-1.025) Urine Protein (Neg-Trace) mg/dL Urine Glucose (UA) (Negative) mg/dL Urine Ketones (Negative) mg/dL Urine Blood (Negative) Urine Nitrite (Negative) Ur Leukocyte Esterase (Negative) Urine RBC (0-2) /HPF Urine WBC (0-5) /HPF Ur Squamous Epith Cells (0-2) /HPF Urine Bacteria (None Seen) Hyaline Casts (0-2) /LPF Urine Test (NEGATIVE) COVID-19 ([facility]) Negative (Negative) COVID-19 Clin Com See Note 02/01/23 02/01/23 Range/Units 18:09 18:09 WBC (4.8-10.8) X10*3/uL RBC (4.20-5.50) X10*6/uL Hgb (12.0-16.0) g/dl Hct (37.0-47.0) % MCV (80.0-98.0) fL MCH (27.0-33.0) pg MCHC (31.0-35.0) g/dl RDW (11.0-16.0) % Plt Count (160-400) X10*3/uL MPV (9.4-12.3) fL Immature Gran % (Auto) (0.0-0.4) % Neut % (Auto) (45-73) % Lymph % (Auto) (20-40) % [place] % (Auto) (2-11) % Eos % (Auto) (0-4) % Baso % (Auto) (0-2) % Lymph # (Auto) (1.2-4.9) X10*3/uL [place] # (Auto) (0.1-1.2) X10*3/uL Eos # (Auto) (0.0-0.4) X10*3/uL Baso # (Auto) (0.0-0.2) X10*3/uL Abs Immat Gran (auto) (0.00-0.03) X10*3/uL Absolute Neuts (auto) (2.0-8.3) x10*3/uL Absolute Nucleated RBC (0.0-0.012) X10*3/uL Nucleated RBC % (auto) (0.0-0.2) /100WBC Sodium (135-145) mmol/L Potassium (3.3-5.1) mmol/L Chloride (96-108) mmol/L Carbon Dioxide (22-29) mmol/L Anion Gap (12-20) BUN (9-16) mg/dL Creatinine (0.5-1.4) mg/dL Estim Creat Clear Calc Estimated GFR Random Glucose (60-115) mg/dL Calcium (8.4-10.2) mg/dL Total Bilirubin (0.0-1.0) mg/dL AST (5-31) U/L ALT (0-31) U/L Alkaline Phosphatase (39-117) U/L Total Protein (6.5-8.0) g/dL Albumin (3.5-5.0) g/dL Urine Color Yellow Urine Appearance Clear Urine pH 6.0 (5.0-9.0) Ur Specific [place] 1.025 (1.005-1.025) Urine Protein 30 (1+) H (Neg-Trace) mg/dL Urine Glucose (UA) Negative (Negative) mg/dL Urine Ketones Trace (Negative) mg/dL Urine Blood Negative (Negative) Urine Nitrite Negative (Negative) Ur Leukocyte Esterase Negative (Negative) Urine RBC 0-2 (0-2) /HPF Urine WBC 0-5 (0-5) /HPF Ur Squamous Epith Cells 0-2 (0-2) /HPF Urine Bacteria None Seen (None Seen) Hyaline Casts 0-2 (0-2) /LPF Urine Test NEGATIVE (NEGATIVE) COVID-19 ([facility]) (Negative) COVID-19 Clin Com Discharge Plan Discharge Clinical Impression: Polysubstance abuse Patient Disposition: Home, Self-Care Instructions: Polysubstance Abuse (ED) Additional Instructions: Follow-up from detox as outpatient Instructions are given you need to make phone calls yourself
--- NOTE | 2023-02-02 02:52 | PC.NURSE ---
Patient evaluated for ETOH and seeking detox. Patient out of room multiple times to ask for things, became aggressive towards Dr. Clements, patient given discharge paperwork with security present. Patient threw discharge paperwork on ground and started to be verbally abusive, patient also got in this nurse's face and continued to state you wasted my fucking time . Patient left with security presence
[2023-02-02 09:57] LABS: CT PCR NOT DETECTED (Not Detect.); NG PCR NOT DETECTED (Not Detect.)
== END 2023-02-02 23:40 | disposition home or self-care (01) ==
PROVIDERS: Emergency Provider Internal Medicine
DX: F14.19 Cocaine abuse with unspecified cocaine-induced disorder (principal); Z20.822 Contact with and (suspected) exposure to COVID-19; Z20.828 Contact with and (suspected) exposure to other viral communicable diseases; Z79.899 Other long term (current) drug therapy; Z71.51 Drug abuse counseling and surveillance of drug abuser
CPT/HCPCS: 0353U; 36415; 80053; 81001; 81025; 85025; 87635; 99283